=== PATIENT | female | born 1950 | race Caucasian/White ===

== ENCOUNTER → 2019-09-04 10:56 | Outpatient (CLI) | payer MEDICARE, OTHER, SELFPAY ==
[2019-09-04 12:33] LABS: Absolute Lymphocyte Count 1.54 X10^3/uL (0.83-4.51); Absolute Neutrophil Count 3.6 X10^3/uL (2.0-7.7); Basophil# 0.04 X10^3/uL; Basophil% 0.7 % (0-1); Eosinophil# 0.09 X10^3/uL; Eosinophils% 1.6 % (0-5); Hematocrit 40.1 % (37-47); Hemoglobin 12.7 g/dL (12.0-15.0); Lymphocyte # 1.54 X10^3/ul (4.0); Lymphocyte % 27.5 % (19-41); Mean Corp Hgb Conc 31.7 g/dL (32-36); Mean Corpuscular Hgb 29.5 pg (27.0-32.0); Mean Corpuscular Volume 93.3 fL (81-99); Mean Platelet Vol. 10.5 fl (6.2-12.0); Monocyte# 0.36 X10^3/uL; Monocyte% 6.4 % (0-10); NRBC Flagged by Analyzer 0 % (0-5); Neutrophil # 3.57 X10^3/uL (2.7-7.7); Neutrophil % 63.6 % (47-70); Platelet Count 246 K/mm3 (150-450); RBC Distribution Width CV 12.5 % (11.6-14.6); RBC Distribution Width SD 43.1 fl (35.1-43.9); White Blood Count 5.6 K/mm3 (4.4-11.0)
[2019-09-04 12:59] LABS: Iron 90 ug/dL (50-170); Iron Binding Capacity,Total 351 ug/dL (250-450); PERCENT IRON SATURATION 25.6 % (15.0-55.0)
== END ==
PROVIDERS: Referring Provider Dermatology; Visit Provider Dermatology
DX: I87.2 Venous insufficiency (chronic) (peripheral) (principal); I83.92 Asymptomatic varicose veins of left lower extremity; L82.0 Inflamed seborrheic keratosis; L72.8 Other follicular cysts of the skin and subcutaneous tissue; L21.8 Other seborrheic dermatitis; L82.1 Other seborrheic keratosis; L60.3 Nail dystrophy
CPT/HCPCS: 36415; 83540; 83550; 85025

== ENCOUNTER → 2019-11-06 16:36 | Outpatient (CLI) | payer MEDICARE, OTHER, SELFPAY ==
[2019-11-06 17:07] LABS: Absolute Lymphocyte Count 2.02 X10^3/uL (0.83-4.51); Absolute Neutrophil Count 4.4 X10^3/uL (2.0-7.7); Basophil# 0.04 X10^3/uL; Basophil% 0.6 % (0-1); Eosinophils% 1.4 % (0-5); Hemoglobin 13.2 g/dL (12.0-15.0); Lymphocyte # 2.02 X10^3/ul (4.0); Lymphocyte % 28.5 % (19-41); Mean Corp Hgb Conc 32.2 g/dL (32-36); Mean Corpuscular Hgb 29.7 pg (27.0-32.0); Mean Corpuscular Volume 92.3 fL (81-99); Mean Platelet Vol. 10.5 fl (6.2-12.0); Monocyte# 0.48 X10^3/uL; Monocyte% 6.8 % (0-10); NRBC Flagged by Analyzer 0 % (0-5); Neutrophil # 4.41 X10^3/uL (2.7-7.7); Neutrophil % 62.3 % (47-70); Platelet Count 275 K/mm3 (150-450); RBC Distribution Width CV 12.6 % (11.6-14.6); RBC Distribution Width SD 42.6 fl (35.1-43.9); Red Blood Count 4.44 M/mm3 (4.2-5.4); White Blood Count 7.1 K/mm3 (4.4-11.0)
[2019-11-06 18:02] LABS: ALB/GLOB Ratio 1.2 RATIO (0.9-2.4); AST(SGOT) 24 U/L (15-37); Alanine Aminotransfer ALT/SGPT 34 U/L (13-56); Albumin, Serum 3.8 g/dL (3.2-5.0); Alkaline Phosphatase 84 U/L (45-117); Anion Gap 4 (5-15); BUN 12 mg/dL (7-18); BUN/Creat Ratio 15.4 RATIO (10-20); Calcium,Total 9.3 mg/dL (8.5-10.1); Chloride 109 mmol/L (98-107); Creatinine, Serum 0.78 mg/dL (0.55-1.02); EST Glomerular Filtration Rate 78 mL/min (>60); Est Glom Filt Rate - Afr Amer 94 mL/min (>60); Globulin 3.2 g/dL (2.2-4.2); Glucose 94 mg/dL (74-106); Potassium 4.1 mmol/L (3.5-5.1); Sodium Level 140 mmol/L (136-145); Thyroid Stim Hormone (TSH) 0.24 uIU/mL (0.358-3.74)
[2019-11-07 09:20] LABS: Hepatitis C Antibody Non-Reactive (Nonreactive); Vitamin D,25 Hydroxy 41.7 ng/mL (29.95-100.01)
== END ==
PROVIDERS: Visit Provider Family Medicine Geriatric Medicine
DX: E55.9 Vitamin D deficiency, unspecified (principal); R53.83 Other fatigue; Z13.89 Encounter for screening for other disorder
CPT/HCPCS: 36415; 80053; 82306; 84443; 85025; 86803

== ENCOUNTER → 2022-11-03 | Outpatient (CLI) | payer MEDICARE, OTHER, SELFPAY ==
--- NOTE | 2022-11-03 13:13 | CT_ITS ---
STUDY: CT ABDOMEN AND PELVIS WITH CONTRAST REASON FOR EXAM: Female, 72 years old. LLQ pain, chronic constipation -- oral and iv RADIATION DOSAGE (If Supplied By Facility): CTDIvol = ( 11.07 ) mGy, DLP = ( 426.11 ) mGycm TECHNIQUE: Transaxial images were obtained from the dome of the diaphragm to the symphysis pubis with oral contrast. IV 100mL Isovue-300 was administered. Sagittal and coronal images were reconstructed. Individualized dose optimization techniques were used for this CT. COMPARISON: None. FINDINGS: The visualized lung bases are unremarkable. The visualized portions of the heart are within normal limits. Normal liver. Normal gallbladder and extrahepatic biliary system. Normal spleen. Normal pancreas. Normal bilateral adrenal glands. Normal right kidney. Normal left kidney. Normal visualized stomach. Normal small intestine. A large amount of fecal material is seen throughout the colon. The appendix is visualized and appears normal. There is scattered atherosclerotic calcification of the abdominal aorta, without a demonstrated aneurysm. Normal inferior vena cava. Normal retroperitoneum. Normal urinary bladder. There is absence of the uterus consistent with a prior hysterectomy. Normal abdominal wall. Normal osseous structures. CT/Abdomen/Pelvis WITH Contrast IMPRESSION: Large amount of fecal material is seen throughout the colon. Electronically Signed: Allen Appiah MD at 16:32 EST ,
[2022-11-03 13:45] LABS: CREATININE FINGERSTICK < 0.9 mg/dL (0.55-1.02); EGFR FINGERSTICK > 60.0000 mL/min (>60)
== END | disposition home or self-care (01) ==
LOC: CT 13:12
PROVIDERS: PCP Student in an Organized Health Care Education/Training Program; Referring Provider Nurse Practitioner Adult Health; Visit Provider Nurse Practitioner Adult Health
DX: R10.32 Left lower quadrant pain (principal)
CPT/HCPCS: 74177; Q9967

== ENCOUNTER 2022-12-21 07:35 | Day surgery (SDC) | payer MEDICARE, OTHER, SELFPAY ==
[2022-12-21] VITALS (7 sets, daily range): BP systolic 108–137; BP diastolic 64–75; PULSE 54–67; RESP 16; TEMP 36.6–36.8; O2SAT 96–100; BMI 24.2
--- NOTE | 2022-12-21 | ESO_PTH ---
PATIENT: RAMON HORTON LOC: EN U#:[id number] AGE/SX: 72/F ROOM: RE12/21/[address]: Dr. Jonathan Garza DO : 1950 BED: DIS: 12/21/2022 SPEC #: [id number] RECD: 12/21/22 11:20 STATUS: JOSE RAUL IBARRA #: [id number] LILIA: 12/21/22 00:[address]: Jonathan Garza DEPT: SURGICAL PATHOLOGY RECD BY: Imtiaz Guo ENTERED: 12/21/22 11:21 SP TYPE: CUBA MEYER DR: Dr. 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 Chronic inflammation. Negative for dysplasia. See comment. ZEN:jennifer 12/22/2022 COMMENT Alcian blue/PAS stain with matched control is used in the evaluation of the specimen. Immunohistochemistry ([id number]) for P53 and Ki-67 will be performed and results will be reported separately. MICROSCOPIC DESCRIPTION Slides are reviewed. GROSS DESCRIPTION Received in fixative is one container labeled with the patient's name and designated distal esophagus. The specimen consists of multiple irregular fragments of light kruger soft tissue that in aggregate measure 0.8 x 0.5 x 0.1 cm. The specimen is totally submitted in one cassette. / ZEN:jennifer 12/21/2022 TC:5 CPT: 49418, 85069
--- NOTE | 2022-12-21 | IMM_PTH ---
PATIENT: RAMON HORTON LOC: EN U#:[id number] AGE/SX: 72/F ROOM: RE12/21/[address]: Dr. Jonathan Garza DO : 1950 BED: DIS: 12/21/2022 SPEC #: [id number] RECD: 12/22/22 13:48 STATUS: JOSE RAUL REQ #: [id number] LILIA: 12/21/22 00:[address]: Jonathan Garza DEPT: IMMUNOHISTOCHEMISTRY RECD BY: Meg Cutler ENTERED: 12/22/22 13:49 SP TYPE: IMMUNO OTHR DR: Dr. 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 Localization is made via biotin free immunoperoxidase method. Appropriate controls are performed and reacted as expected. Results on target cell population are indicated in the following table: RESULTS: ANTIBODY / CLONE RESULT P53 (DO-7) negative Ki-67 (30-9) positive, low These tests were developed and their performance characteristics determined by [facility]. They may not have been cleared or approved by the U.S. Food and Drug Administration. The FDA has determined that such clearance or approval is not necessary. The above immunohistochemical/dualISH markers are ordered and reviewed by the Pathologist. INTERPRETATION: Distal esophagus, biopsy: Negative for dysplasia. ZEN:jennifer 12/23/2022
[2022-12-21] MEDS: Lactated Ringers 1,000 ML 15 ML IV (08:06)
--- NOTE | 2022-12-21 08:06 | HP.PCM_ITS ---
History and Physical Date of Admission: 12/21/22 72 F who presents to the office today to establish with a different GI practice for chronic constipation. She has a hx of GERD, multiple esophageal strictures requiring dilation, Guerrero's esophagus, lifelong constipation, IBS-C. About 6 mos ago she has developed LLQ pain, feels very deep, she describes as feeling like it's at the rectosigmoid colon. Worse when more constipated. She had sigmoid resection in 2020 for redundant colon to try to help colonoscopy, however no improvement in constipation. She had rectopexy at the same time--that has helped the fecal incontinence. No heartburn or acid reflux. No dysphagia. She is cutting back on pantoprazole due to concern about it contributing to constipation (no improvement in constipation). Stools are hard, has to strain, has daily BM most days. Drinking alkaline water. Daily olive oil which has helped with the hard small pellet st ool At least once a day prune juice. Takes citrucel daily. She has kept food diaries, no consistent triggers. Does help to avoid gluten, for GI symptoms and fibromyalgia. Has tried in past: miralax, dulcolax (stuck in esophagus) 11/2020 EGD and colonoscopy by another prison teacher 02/13/21 colonoscopy in anticipation of colorectal surgery: tubular adenoma in cecum, tubular adenoma in descending colon 03/10/21 colorectal surgeon did robotic resection rectopexy and sigmoidectomy Sphincteroplasty for rectal prolapse 2007 ROS Const Constitutional: Positive for headache(s); No fatigue, fever(s), frequent falls or weight change ENT ENT: Positive for headache(s); No difficulty swallowing Cardio Cardiology: No leg pain with exertion Gastro GI: Positive for constipation and nausea/dyspepsia; No abdominal pain, bloating, change in bowel habits, diarrhea, heartburn, difficulty swallowing, Vomiting blood/hematemesis, Blood in stool or vomiting Musc Musculoskeletal: Positive for joint pain, back pain, muscle cramps, numbness, stiffness, tingling, Arthritis and leg pain at night; No abnormal gait, joint swelling, muscle weakness, sciatica or leg pain with exertion Skin Skin: Positive for dry skin; No lesions, itchy eyes or rash Neuro Neurology: Positive for headache(s), numbness and tingling; No abnormal gait, dizziness, frequent falls, tremor(s), Increased tone in limbs, paralysis or seizures Psych Psychiatric: No anxiety, No depression, No paranoia, No Behavioral Problems, No Compulsive Behavior, No hyperactivity, No inattentiveness, No obsessions/compulsions, No Temper Tantrums and No suicidal ideation Endo Endocrine: No fatigue or weight change Aller/Imm Allergy/Immunologic: No itchy eyes Mike/Lymp Hematologic/Lymphatic: No easy bleeding or easy bruising Exam Const General: cooperative, healthy appearing and comfortable Nutritional Appearance: average body habitus Orientation: alert, awake and oriented x3 HENMT Head: normal to inspection Eyes Sclera: sclerae normal Resp Effort & Inspection: normal respiratory effort GI Inspection: normal to inspection Palpation: soft, no hepatosplenomegaly, no masses and nontender General: bladder normal to palpation Bimanual Exam- Vagina & Uterus: bladder normal to palpation Skin General: no rashes or lesions noted Neuro Gait: normal gait Psych Mood: euthymic mood Quality Reporting Tobacco Screening ([facility]) Smoking Status: Former smoker Assessment and Plan Assessment and Plan (1) LLQ abdominal pain: ?Status:?Acute ?Plan: 72 yr old female with chronic constipation, newer LLQ pain, hx GERD/Guerrero's/esophageal strictures CT abd pel w/ oral and IV contrast to evaluate the LLQ pain and chronic constipation (2) Chronic constipation: ?Status:?Chronic ?Plan: add aloe vera or kiwi supplements to her current regimen (3) Barretts esophagus: ?Status:?Acute ?Plan: resume pantoprazole 40 mg qam update EGD, office f/u 2 wks later ? ? ? Orders: I have examined the patient and the H&P has been reviewed. There are no clinical changes since date of exam.
--- NOTE | 2022-12-21 09:12 | OP.EGD_ITS ---
Patient Name: Solange Mitchell Procedure Date: 12/21/2022 8:41 AM Date of : 1950 Age: 72 Procedure: Upper GI endoscopy Indications: Dysphagia Providers: Jonathan Garza DO Medicines: Monitored Anesthesia Care Patient Profile: This is a 72 year old female. Refer to note in patient chart for documentation of history and physical. Patient has symptoms of chronic dysphagia and dysphagia with both liquids and solids. Complications: No immediate complications. Procedure: Pre-Anesthesia Assessment: - Prior to the procedure, a History and Physical was performed, and patient medications and allergies were reviewed. The risks and benefits of the procedure and the sedation options and risks were discussed with the patient. All questions were answered and informed consent was obtained. Patient identification and proposed procedure were verified by the physician in the pre-procedure area. Mental Status Examination: normal. Respiratory Examination: clear to auscultation. CV Examination: normal. Prophylactic Antibiotics: The patient does not require prophylactic antibiotics. Prior Anticoagulants: The patient has taken no previous anticoagulant or antiplatelet agents. After reviewing the risks and benefits, the patient was deemed in satisfactory condition to undergo the procedure. The anesthesia plan was to use monitored anesthesia care (MAC). Immediately prior to administration of medications, the patient was re-assessed for adequacy to receive sedatives. The heart rate, respiratory rate, oxygen saturations, blood pressure, adequacy of pulmonary ventilation, and response to care were monitored throughout the procedure. The physical status of the patient was re-assessed after the procedure. After obtaining informed consent, the endoscope was passed under direct vision. Throughout the procedure, the patient's blood pressure, pulse, and oxygen saturations were monitored continuously. The Endoscope was introduced through the mouth, and advanced to the second part of duodenum. The upper GI endoscopy was accomplished without difficulty. The patient tolerated the procedure well. Scope In: 8:57:23 AM Scope Out: 9:03:15 AM Total Procedure Duration Time 0 hours 5 minutes 52 seconds Findings: One benign-appearing, intrinsic stenosis was found 20 to 21 cm from the incisors. This stenosis was mildly severe and. The stenosis was traversed. A guidewire was placed and the scope was withdrawn. Dilation was performed with a Savary dilator with no resistance at 60 Fr. The dilation site was examined and showed moderate improvement in luminal narrowing. Estimated blood loss was minimal. The Z-line was irregular and was found 38 cm from the incisors. Biopsies were taken with a cold forceps for histology. Verification of patient identification for the specimen was done. Estimated blood loss was minimal. No other significant abnormalities were identified in a careful examination of the stomach. The cardia and gastric fundus were normal on retroflexion. The first portion of the duodenum was normal. Impression: - Benign-appearing esophageal stenosis. Dilated. - Z-line irregular, 38 cm from the incisors. Biopsied. - Normal first portion of the duodenum. Recommendation: - Discharge patient to home. - Resume previous diet. - Continue present medications. Procedure Code(s): --- Professional --- 81277, Esophagogastroduodenoscopy, flexible, transoral; with insertion of guide wire followed by passage of dilator(s) through esophagus over guide wire 32346, 59,51, Esophagogastroduodenoscopy, flexible, transoral; with biopsy, single or multiple CPT copyright 2017 [employer]. All rights reserved. The codes documented in this report are preliminary and upon loft rigger review may be revised to meet current compliance requirements. Jonathan Garza DO 12/21/2022 9:12:34 AM This report has been signed electronically. Number of Addenda: 0 Note Initiated On: 12/21/2022 8:41 AM
--- NOTE | 2022-12-21 09:12 | OP.CCLET_ITS ---
12/21/2022 Emeka Gutierrez Do Re : Upper GI endoscopy procedure for Solange Mitchell Dear Matt This procedure was performed on Wednesday, December 21, 2022. My impressions and recommendations are as follows: Impressions : - Benign-appearing esophageal stenosis. Dilated. - Z-line irregular, 38 cm from the incisors. Biopsied. - Normal first portion of the duodenum. Recommendations : - Discharge patient to home. - Resume previous diet. - Continue present medications. My findings are described in the full procedure note, which is enclosed. If I can be of further assistance, please feel free to contact me at . Sincerely, Jonathan Garza DO 12/21/2022 9:12:34 AM This report has been signed electronically.
== END 2022-12-21 10:06 | disposition home or self-care (01) ==
LOC: EN 07:37 → AC 07:39
PROVIDERS: PCP Student in an Organized Health Care Education/Training Program; Referring Provider Student in an Organized Health Care Education/Training Program; Visit Provider Internal Medicine Gastroenterology
PROC: 0DJ08ZZ Inspection of Upper Intestinal Tract, Via Natural or Artificial Opening Endoscopic (ICD-10-PCS; CPT 43235; principal; 2022-12-21 08:40)
DX: K22.70 Barrett's esophagus without dysplasia (principal); K22.2 Esophageal obstruction; J45.909 Unspecified asthma, uncomplicated; K21.9 Gastro-esophageal reflux disease without esophagitis; E03.9 Hypothyroidism, unspecified; Z87.891 Personal history of nicotine dependence; Z79.899 Other long term (current) drug therapy
CPT/HCPCS: 43239; 43248; 88305; 88313; 88341; 88342; J7120; C1769; J2405

== ENCOUNTER 2025-05-17 09:15 | Day surgery (SDC) | payer MEDICARE, OTHER, SELFPAY ==
--- NOTE | 2025-05-16 15:37 | PAT.ANESEVAL ---
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 When Was Last Pacemaker Check QUESTION #4 FULL TEXT: You/Your Family Experience fever (hyperthermia) with Anesthesia Last Oral Intake Last Oral intake: Last Oral Intake NPO since Meds taken in AM with sips of water? 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 Female Yes 05/14/25 14:31 HX of Motion Sickness No 05/14/25 14:31 HX of N/V After Surgery No 05/14/25 14:31 Non-Smoker Yes 05/14/25 14:31 Duration of Surgery greater No 05/14/25 14:31 than 60 minutes Number of Risk Factors 2 05/14/25 14:31 PONV Score Moderate Risk 05/14/25 14:31 Height & Weight Height & Weight: Anesthesia: Height & Weight Height 5 ft 4 in 08/28/24 10:54 Respiratory Assessment Respiratory Assessment - laborer cheesemaking: Respiratory Tract Infection Hx - laborer cheesemaking Hx Respiratory Tract Infection No 05/14/25 14:31 STOP Sleep Apnea STOP Sleep Apnea - laborer cheesemaking: STOP Sleep Apnea - laborer cheesemaking Hx Hypertension No 05/14/25 14:31 Hx Sleep Apnea No 05/14/25 14:31 CPAP BIPAP Do you snore loudly (louder No 05/14/25 14:31 than talking or can be heard Do you often feel tired/ No 05/14/25 14:31 fatigued/ sleepy during daytime? Has anyone observed you stop No 05/14/25 14:31 breathing during sleep? STOP Results Negative 05/14/25 14:31 QUESTION #5 FULL TEXT : Do you snore loudly (louder than talking or can be heard through closed doors)? 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 Specify any problems Hx of Preganancy in last 3 N/A 05/14/25 14:31 Months Nurse Filling Out Transfusion NBUCHER 05/14/25 14:31 & Questions: Date: 05/14/25 05/14/25 14:31 Time: 14:32 05/14/25 14:31 Patient unable to answer at this time (ie. confused, unrespo /Reproduction History /Reproductive History - laborer cheesemaking: /Reproductive Hx- laborer cheesemaking Hx Now No 05/14/25 14:31 Gestational Age (in weeks): EDC: Hx Hx Para Hx Section SAB No 05/14/25 14:31 PFSH Medical History (Updated 05/14/25 @ 14:40 by Jasmin Fish) Rheumatoid arthritis Frequent headaches Difficulty swallowing Cataract Wears glasses Cancer Alcohol use Thyroid disease Arthritis Migraine headache Back pain Injury of head and neck Dietary restriction History of IBS Gastric reflux Former smoker Chronic cough History of echocardiogram Cardiology follow-up encounter Seasonal allergies Rectal incontinence Palpitations Osteoporosis Neuropathy of both feet IBS (irritable bowel syndrome) History of mitral valve prolapse History of esophageal stricture History of aortic regurgitation Fibromyalgia Barretts esophagus GERD (gastroesophageal reflux disease) Asthma Acute insomnia Vitamin D deficiency IFG (impaired fasting glucose) Hypothyroidism Hyperlipidemia Home Medications Medication Instructions Recorded Last Taken Type albuterol sulfate 90 mcg/actuation 2 puff inhalation Q6H PRN ASTHMA 08/05/22 Unknown History aerosol inhaler atenolol 25 mg tablet 25 mg PO DAILY PRN Anxiety 08/05/22 Unknown History levothyroxine 75 mcg capsule 75 mcg PO SUTUWETHFRSA 08/05/22 Unknown History pantoprazole 40 mg tablet,delayed 40 mg PO DAILY 08/05/22 Unknown History release multivitamin 1 tab PO DAILY 12/15/22 Unknown History fluticasone propionate 50 1 spray intranasal BID 08/28/24 Unknown History mcg/actuation nasal spray,suspension ketoconazole 2 % topical cream 1 applic topical QDAY PRN rash 08/28/24 Unknown History levocetirizine 5 mg tablet 5 mg PO DAILY PRN allergy symptoms 08/28/24 Unknown History trazodone 50 mg tablet 25 mg PO QHS PRN sleep 08/28/24 Unknown History acyclovir 800 mg tablet 800 mg PO TID PRN PRN HERPES 05/14/25 Unknown History betamethasone, augmented 0.05 % applic topical PRN PRN rash 05/14/25 Unknown History topical cream magnesium citrate 34 mg chewable 16 mg PO DAILY 05/14/25 Unknown History tablet mecobalamin (vitamin B12) 500 mcg 500 mcg PO DAILY 05/14/25 Unknown History chewable tablet Allergy/AdvReac Type Severity Reaction Status Date / Time amoxicillin (From Augmentin) Allergy Intermediate Nausea Verified 05/14/25 14:26 azelastine (From Astelin) Allergy Intermediate Other Verified 05/14/25 14:26 ciprofloxacin Allergy Intermediate Nausea Verified 05/14/25 14:26 clavulanic acid (From Allergy Intermediate Nausea Verified 05/14/25 14:26 Augmentin) procaine Allergy Intermediate Other Verified 05/14/25 14:26 sorbitol Allergy Intermediate Diarrhea Verified 05/14/25 14:26 sulfamethoxazole (From Allergy Intermediate Nausea Verified 05/14/25 14:26 Septra) trimethoprim (From Septra) Allergy Intermediate Nausea Verified 05/14/25 14:26 Family History Mother Cancer Heart disease Thyroid disorder Father Heart disease Thyroid disorder Daughter Thyroid disorder Surgical History (Updated 05/14/25 @ 14:40 by Jasmin Fish) History of colonoscopy History of esophagogastroduodenoscopy (EGD) History of rectopexy Hx of surgical procedure History of carpal tunnel release H/O section H/O: hysterectomy Social History current occupational status: employed 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 Normal sinus rhythm. Early R wave transition. Echo (EF%) pertinent findings: 2016. Trivial MR. Consult pertinent findings: August 23, 2023. 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 1. Mitral valve prolapse–stable-last echo in 2016 showed trivial MR. No signs and symptoms of worsening valve function since then. 2. Palpitations-stable–no palpitations over the last 6 months. Event monitor from December 2021 did not show any arrhythmias and had less than 1% ectopic burden. She has increased her exercise. And she is continuing to avoid stimulants. Additional pertinent findings: December 2021. Event monitor did not show any arrhythmias and less than 1% ectopic burden. Recommendation Anesthesia Recommendation Anesthesia recommendation: OPTIMIZED for anesthesia
[2025-05-17] VITALS (8 sets, daily range): BP systolic 96–135; BP diastolic 60–78; PULSE 48–61; RESP 14–16; TEMP 36.1–36.6; O2SAT 94–99; BMI 24.2
[2025-05-17] MEDS: Lactated Ringers 1,000 ML 15 ML IV (09:58)
--- NOTE | 2025-05-17 10:13 | PCM.PRE.AN2 ---
ASA Classification* ASA Classification ASA Classification: 2 Assessment & Plan Anesthesia* Anesthesia Assessment Anesthesia Assessment: Discussed sedation and/or anesthesia options, risks, benefits, and alternatives with patient/parents/legal guardian/POA. Questions invited. The patient/parents/legal guardian/POA seems to understand and agrees to proceed with anesthesia plan. Reviewed the physical assessment, medical history, allergy history and patient home medications list prior to surgery/procedure/anesthetic and documented any changes. Performed airway and anesthesia risk assessments. Anesthesia Type Anesthesia Type: General and MAC History Source History Obtained from:: Patient and Chart Anesthesia Focused Assessment* Temperature: 97 F Pulse Rate: 61 Blood Pressure: 135/65 Respiratory Rate: 16 Pulse Ox: 97 Airway Assessment Mouth opens: >3 cm Mallampati Score: II Teeth Condition: Intact Neck Range of motion (ROM): Full ROM Labs Anesthesia Preop lab: CBC WBC 7.1 K/mm3 (4.4-11.0) 11/06/19 16:38 11/06/19 RBC 4.44 M/mm3 (4.2-5.4) 11/06/19 16:38 11/06/19 Hgb 13.2 g/dL (12.0-15.0) 11/06/19 16:38 11/06/19 Hct 41.0 % (37-47) 11/06/19 16:38 11/06/19 Plt Count 275 K/mm3 (150-450) 11/06/19 16:38 11/06/19 CHEMISTRY Potassium 4.1 mmol/L (3.5-5.1) 11/06/19 16:38 11/06/19 Sodium 140 mmol/L (136-145) 11/06/19 16:38 11/06/19 BUN 12 mg/dL (7-18) 11/06/19 16:38 11/06/19 Creatinine 0.78 mg/dL (0.55-1.02) 11/06/19 16:38 11/06/19 Glucose 94 mg/dL (74-106) 11/06/19 16:38 11/06/19 TSH 0.24 uIU/mL (0.358-3.74) L 11/06/19 16:38 11/06/19 COAG Pre-Assessment Diagnosis/Proposed Procedure Planned Operative Procedure(s): EGD WITH POSSIBLE DILATION Anesthesia History Anesthesia History - car unloader helper: Anesthesia History - car unloader helper Hx Hospitalization No 05/14/25 14:31 Any Problems With Anesthesia No 05/14/25 14:31 Cholinesterase deficiency No 05/14/25 14:31 You/Your Family Experience No 05/14/25 14:31 fever (hyperthermia) with Relationship Recent Exposure to Contagious No 05/17/25 09:51 Disease Does patient have nerve No 05/14/25 14:31 stimulator Patient instructed to have device shut off --Does patient have Pacemaker No 05/17/25 09:51 or ICD? When Was Last Pacemaker Check QUESTION #4 FULL TEXT: You/Your Family Experience fever (hyperthermia) with Anesthesia Last Oral Intake Last Oral intake: Last Oral Intake NPO since 06:00 05/17/25 09:51 Meds taken in AM with sips of Yes 05/17/25 09:51 water? Meds patient instructed to see mar 05/17/25 09:51 take am of surgery PONV PONV - car unloader helper: PONV - car unloader helper Female Yes 05/14/25 14:31 HX of Motion Sickness No 05/14/25 14:31 HX of N/V After Surgery No 05/14/25 14:31 Non-Smoker Yes 05/14/25 14:31 Duration of Surgery greater No 05/14/25 14:31 than 60 minutes Number of Risk Factors 2 05/14/25 14:31 PONV Score Moderate Risk 05/14/25 14:31 Height & Weight Height & Weight: Anesthesia: Height & Weight Height 5 ft 4 in 05/17/25 09:51 Weight: 63.957 kg 05/17/25 09:51 Body Mass Index (BMI) 24.2 05/17/25 09:51 Respiratory Assessment Respiratory Assessment - car unloader helper: Respiratory Tract Infection Hx - car unloader helper Hx Respiratory Tract Infection No 05/14/25 14:31 STOP Sleep Apnea STOP Sleep Apnea - car unloader helper: STOP Sleep Apnea - car unloader helper Hx Hypertension No 05/14/25 14:31 Hx Sleep Apnea No 05/14/25 14:31 CPAP BIPAP Do you snore loudly (louder No 05/14/25 14:31 than talking or can be heard Do you often feel tired/ No 05/14/25 14:31 fatigued/ sleepy during daytime? Has anyone observed you stop No 05/14/25 14:31 breathing during sleep? STOP Results Negative 05/14/25 14:31 QUESTION #5 FULL TEXT : Do you snore loudly (louder than talking or can be heard through closed doors)? Tobacco Use History Tobacco Use History - car unloader helper: Tobacco Use History - car unloader helper Tobacco Use Smoking Status Former smoker 05/14/25 14:31 Hx Tobacco Use No 05/14/25 14:31 Years Smoking Packs Smoked per Day Smoking Cessation Date was No - quit smoking greater 05/14/25 14:31 within the last 15 years than 15 years ago Hx Smoking Cessation Date 10/25/86 05/14/25 14:31 Hx Smoking Cessation Counseling Hematologic Medial History Hematologic Hx - car unloader helper: Hematologic Medical Hx - regulatory associate Hx of Blood Transfusion No 05/14/25 14:31 Hx of Transfusion in last 3 No 05/14/25 14:31 Months Date of Last Transfusion (if within last 3 months) Ever experience any problems No 05/14/25 14:31 with transfusion(s)? Specify any problems Hx of Preganancy in last 3 N/A 05/14/25 14:31 Months Nurse Filling Out Transfusion NBUCHER 05/14/25 14:31 & Questions: Date: 05/14/25 05/14/25 14:31 Time: 14:32 05/14/25 14:31 Patient unable to answer at this time (ie. confused, unrespo /Reproduction History /Reproductive History - car unloader helper: /Reproductive Hx- car unloader helper Hx Now No 05/14/25 14:31 Gestational Age (in weeks): EDC: Hx Hx Para Hx Section SAB No 05/14/25 14:31 Active Medications Active Medications: Current Medications Generic Name Dose Route Start Last Admin Trade Name Freq PRN Reason Stop Dose Admin Lactated Ringer's 1,000 mls @ 15 mls/hr 05/17/25 09:45 05/17/25 09:58 IV 15 mls/hr .Q48H NATALIE Administration PFSH Medical History Rheumatoid arthritis Frequent headaches Difficulty swallowing Cataract Wears glasses Cancer Alcohol use Thyroid disease Arthritis Migraine headache Back pain Injury of head and neck Dietary restriction History of IBS Gastric reflux Former smoker Chronic cough History of echocardiogram Cardiology follow-up encounter Seasonal allergies Rectal incontinence Palpitations Osteoporosis Neuropathy of both feet IBS (irritable bowel syndrome) History of mitral valve prolapse History of esophageal stricture History of aortic regurgitation Fibromyalgia Barretts esophagus GERD (gastroesophageal reflux disease) Asthma Acute insomnia Vitamin D deficiency IFG (impaired fasting glucose) Hypothyroidism Hyperlipidemia Home Medications Medication Instructions Recorded Last Taken Type albuterol sulfate 90 mcg/actuation 2 puff inhalation Q6H PRN ASTHMA 08/05/22 Unknown History aerosol inhaler atenolol 25 mg tablet 25 mg PO DAILY PRN Anxiety 08/05/22 Unknown History levothyroxine 75 mcg capsule 75 mcg PO SUTUWETHFRSA 08/05/22 05/17/25 History pantoprazole 40 mg tablet,delayed 40 mg PO DAILY 08/05/22 05/16/25 History release multivitamin 1 tab PO DAILY 12/15/22 Unknown History fluticasone propionate 50 1 spray intranasal BID 08/28/24 Unknown History mcg/actuation nasal spray,suspension ketoconazole 2 % topical cream 1 applic topical QDAY PRN rash 08/28/24 Unknown History levocetirizine 5 mg tablet 5 mg PO DAILY PRN allergy symptoms 08/28/24 Unknown History trazodone 50 mg tablet 25 mg PO QHS PRN sleep 08/28/24 Unknown History acyclovir 800 mg tablet 800 mg PO TID PRN PRN HERPES 05/14/25 Unknown History betamethasone, augmented 0.05 % applic topical PRN PRN rash 05/14/25 Unknown History topical cream magnesium citrate 34 mg chewable 16 mg PO DAILY 05/14/25 Unknown History tablet mecobalamin (vitamin B12) 500 mcg 500 mcg PO DAILY 05/14/25 Unknown History chewable tablet Allergy/AdvReac Type Severity Reaction Status Date / Time amoxicillin (From Augmentin) Allergy Intermediate Nausea Verified 05/17/25 09:49 azelastine (From Astelin) Allergy Intermediate Other Verified 05/17/25 09:49 ciprofloxacin Allergy Intermediate Nausea Verified 05/17/25 09:49 clavulanic acid (From Allergy Intermediate Nausea Verified 05/17/25 09:49 Augmentin) procaine Allergy Intermediate Other Verified 05/17/25 09:49 sorbitol Allergy Intermediate Diarrhea Verified 05/17/25 09:49 sulfamethoxazole (From Allergy Intermediate Nausea Verified 05/17/25 09:49 Septra) trimethoprim (From Septra) Allergy Intermediate Nausea Verified 05/17/25 09:49 Family History Mother Cancer Heart disease Thyroid disorder Father Heart disease Thyroid disorder Daughter Thyroid disorder Surgical History History of colonoscopy History of esophagogastroduodenoscopy (EGD) History of rectopexy Hx of surgical procedure History of carpal tunnel release H/O section H/O: hysterectomy Social History current occupational status: employed 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
--- NOTE | 2025-05-17 10:15 | EGD_PTH ---
PATIENT: RAMON HORTON LOC: EN U#:[id number] AGE/SX: 75/F ROOM: RE05/17/[address]: Dr. Jonathan Garza DO : 1950 BED: DIS: 05/17/2025 SPEC #: [id number] RECD: 05/17/25 17:53 STATUS: JOSE RAUL REElzbieta #: [id number] LILIA: 05/17/25 10:[address]: Jonathan Garza DEPT: SURGICAL PATHOLOGY RECD BY: Kev Renteria ENTERED: 05/18/25 09:52 SP TYPE: EGD BIOPSY BETSY DR: Dr. Emeka Gutierrez DO Tissues: A - Esophagus, NOS Procedures: Surgery Specimen Level IV HEADER OPERATION: EGD, biopsy, dilation PRE-OP DIAGNOSIS: Guerrero's esophagus, chronic constipation TISSUE SUBMITTED: A- Distal esophagus biopsy MICROSCOPIC DIAGNOSIS A. Distal esophagus, biopsy: - Guerrero mucosa negative for dysplasia. MICROSCOPIC DESCRIPTION Slides are reviewed. GROSS DESCRIPTION A. Received in fixative is one container labeled with the patient's name and designated "Distal esophagus biopsy." The specimen consists of three irregular fragments of light kruger soft tissue that in aggregate measure 0.4 to 0.5 cm. The specimen is totally submitted in one cassette. ID 05/[id number] CPT:63897
--- NOTE | 2025-05-17 10:28 | PCM.HP.STD ---
HPI - General General Date of Admission: 05/17/25 Date of Service: 05/17/25 Chief Complaint: Guerrero's esophagus HPI Narrative RAMON HORTON, is a 75 F who presents Chief Complaint: [facility]ret[facility] established in 2021 for hx of Guerrero, esophageal strictures and IBS-C. 11/2020 EGD and colonoscopy by another installer apprentice 02/13/21 colonoscopy in anticipation of colorectal surgery: tubular adenoma in cecum, tubular adenoma in descending colon 03/10/21 colorectal surgeon did robotic resection rectopexy and sigmoidectomy Sphincteroplasty for rectal prolapse 2007 EGD 12.21.22 - Benign-appearing esophageal stenosis. Dilated. - Z-line irregular, 38 cm from the incisors. Biopsied. - Normal first portion of the duodenum. OV 03.14.25 Pt here today for questions regarding her Pantoprazole. Pt has never had issues with heartburn. [facility] Medical History Rheumatoid arthritis Frequent headaches Difficulty swallowing Cataract Wears glasses Cancer Alcohol use Thyroid disease Arthritis Migraine headache Back pain Injury of head and neck Dietary restriction History of IBS Gastric reflux Former smoker Chronic cough History of echocardiogram Cardiology follow-up encounter Seasonal allergies Rectal incontinence Palpitations Osteoporosis Neuropathy of both feet IBS (irritable bowel syndrome) History of mitral valve prolapse History of esophageal stricture History of aortic regurgitation Fibromyalgia Barretts esophagus GERD (gastroesophageal reflux disease) Asthma Acute insomnia Vitamin D deficiency IFG (impaired fasting glucose) Hypothyroidism Hyperlipidemia Home Medications Medication Instructions Recorded Last Taken Type albuterol sulfate 90 mcg/actuation 2 puff inhalation Q6H PRN ASTHMA 08/05/22 Unknown History aerosol inhaler atenolol 25 mg tablet 25 mg PO DAILY PRN Anxiety 08/05/22 Unknown History levothyroxine 75 mcg capsule 75 mcg PO SUTUWETHFRSA 08/05/22 05/17/25 History pantoprazole 40 mg tablet,delayed 40 mg PO DAILY 08/05/22 05/16/25 History release multivitamin 1 tab PO DAILY 12/15/22 Unknown History fluticasone propionate 50 1 spray intranasal BID 08/28/24 Unknown History mcg/actuation nasal spray,suspension ketoconazole 2 % topical cream 1 applic topical QDAY PRN rash 08/28/24 Unknown History levocetirizine 5 mg tablet 5 mg PO DAILY PRN allergy symptoms 08/28/24 Unknown History trazodone 50 mg tablet 25 mg PO QHS PRN sleep 08/28/24 Unknown History acyclovir 800 mg tablet 800 mg PO TID PRN PRN HERPES 05/14/25 Unknown History betamethasone, augmented 0.05 % applic topical PRN PRN rash 05/14/25 Unknown History topical cream magnesium citrate 34 mg chewable 16 mg PO DAILY 05/14/25 Unknown History tablet mecobalamin (vitamin B12) 500 mcg 500 mcg PO DAILY 05/14/25 Unknown History chewable tablet Allergy/AdvReac Type Severity Reaction Status Date / Time amoxicillin (From Augmentin) Allergy Intermediate Nausea Verified 05/17/25 09:49 azelastine (From Astelin) Allergy Intermediate Other Verified 05/17/25 09:49 ciprofloxacin Allergy Intermediate Nausea Verified 05/17/25 09:49 clavulanic acid (From Allergy Intermediate Nausea Verified 05/17/25 09:49 Augmentin) procaine Allergy Intermediate Other Verified 05/17/25 09:49 sorbitol Allergy Intermediate Diarrhea Verified 05/17/25 09:49 sulfamethoxazole (From Allergy Intermediate Nausea Verified 05/17/25 09:49 Septra) trimethoprim (From Septra) Allergy Intermediate Nausea Verified 05/17/25 09:49 Family History Mother Cancer Heart disease Thyroid disorder Father Heart disease Thyroid disorder Daughter Thyroid disorder Surgical History History of colonoscopy History of esophagogastroduodenoscopy (EGD) History of rectopexy Hx of surgical procedure History of carpal tunnel release H/O section H/O: hysterectomy Social History current occupational status: employed 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 Smoking Status: Former smoker alcohol intake: current alcohol intake frequency: a few times a month details: On avg 1-2 glasses of wine every other wk substance use type: does not use caffeine: Yes (1-2 cups half-caf coffee daily) do you feel safe at home: Yes ROS Constitutional Constitutional: Denies fatigue, fever(s), poor appetite, weight gain or weight loss Gastrointestinal Gastrointestinal: Denies belching, bloating, change in bowel habits, change in stool character, chewing difficulty, coffee ground emesis, constipation, cramping, diarrhea, dyspepsia, dysphagia, early satiety, excessive flatus, fecal incontinence, heartburn, hematemesis, hematochezia, hemorrhoids, loose stools, melena, nausea, odynophagia, rectal bleeding, tenesmus, vomiting or weight changes Vital Signs Vital Signs Vital Signs: 05/17/25 09:51 05/17/25 09:51 05/17/25 10:20 Temperature 97 F L 97 F L Temperature Source Temporal Pulse Rate 61 61 Respiratory Rate 16 16 Respiratory Pattern Normal Blood Pressure 135/65 H 135/65 H Blood Pressure Mean 88 Blood Pressure Source Monitor Blood Pressure Position Semi-Fowlers Blood Pressure Location Right Arm Pulse Ox 97 97 Oxygen Delivery Method Room Air Weight Weight: 141 lb Body Mass Index (BMI) 24.2 Physical Exam Const alert, oriented x3, no apparent distress and healthy appearing General Appearance: cooperative GI normal to inspection, nondistended, normoactive bowel sounds, soft to palpation, non-tender and non-distended Percussion: normal to percussion Rectal Exam: deferred Assessment & Plan Assessment/Plan (1) Barretts esophagus: (2) LLQ abdominal pain: PLAN: Assessment and Plan Assessment and Plan (1) Barretts esophagus: Status: Chronic Plan: This is a 75 yo female pt here today for f/u of Barretts esophagus and chronic constipation. Pt has not been seen in the office since 2022 as she has been doing well. She has concerns regarding exterminator use of PPIs. She is has concerns over the the effect it may have on her memory. I advised that she has Barretts esophagus and PPIs help prevent progression to dysplasia or cancer. Studies have been in conclusive regarding its association. Pt was advised that the recommendation is to continue with PPI but it is ultimatly up to her. She will undergo EGD to assess her Barretts esophagus. Her constipation is well controlled with adequate hydration, fiber and olive oil. -EGD -Recommend continuing PPI -f/u after scope (2) Chronic constipation: Status: Chronic
--- NOTE | 2025-05-17 10:50 | OP.EGD_ITS ---
Patient Name: Solange Mitchell Procedure Date: 05/17/2025 10:30 AM Date of : 1950 Age: 75 Procedure: Upper GI endoscopy Indications: Dysphagia, Follow-up of Guerrero's esophagus Providers: Jonathan Gazra DO Referring MD: Emeka Gutierrez Do Medicines: Monitored Anesthesia Care Patient Profile: This is a 75 year old female. Refer to note in patient chart for documentation of history and physical. Patient has symptoms of dysphagia with solids. Complications: No immediate complications. Procedure: Pre-Anesthesia Assessment: - Prior to the procedure, a History and Physical was performed, and patient medications and allergies were reviewed. The patient is competent. The risks and benefits of the procedure and the sedation options and risks were discussed with the patient. All questions were answered and informed consent was obtained. Patient identification and proposed procedure were verified by the physician in the pre-procedure area. Mental Status Examination: alert and oriented. Airway Examination: normal oropharyngeal airway and neck mobility. Respiratory Examination: clear to auscultation. CV Examination: normal. Prophylactic Antibiotics: The patient does not require prophylactic antibiotics. Prior Anticoagulants: The patient has taken no anticoagulant or antiplatelet agents except for NSAID medication. ASA Grade Assessment: II - A patient with mild systemic disease. After reviewing the risks and benefits, the patient was deemed in satisfactory condition to undergo the procedure. The anesthesia plan was to use monitored anesthesia care (MAC). Immediately prior to administration of medications, the patient was re-assessed for adequacy to receive sedatives. The heart rate, respiratory rate, oxygen saturations, blood pressure, adequacy of pulmonary ventilation, and response to care were monitored throughout the procedure. The physical status of the patient was re-assessed after the procedure. After obtaining informed consent, the endoscope was passed under direct vision. Throughout the procedure, the patient's blood pressure, pulse, and oxygen saturations were monitored continuously. The gastroscope was introduced through the mouth, and advanced to the second part of duodenum. The upper GI endoscopy was accomplished without difficulty. The patient tolerated the procedure well. Scope In: 10:40:46 AM Scope Out: 10:45:30 AM Total Procedure Duration Time 0 hours 4 minutes 44 seconds Findings: The Z-line was irregular and was found 39 cm from the incisors. Biopsies were taken with a cold forceps for histology. Verification of patient identification for the specimen was done. Estimated blood loss was minimal. One benign-appearing, intrinsic moderate stenosis was found 20 to 24 cm from the incisors. This stenosis measured 6 cm (in length). The stenosis was traversed. A guidewire was placed and the scope was withdrawn. Dilation was performed with a Savary dilator with no resistance at 57 Fr. The dilation site was examined and showed moderate improvement in luminal narrowing. No gross lesions were noted in the entire examined stomach. No gross lesions were noted in the entire examined duodenum. Impression: - Z-line irregular, 39 cm from the incisors. Biopsied. - Benign-appearing esophageal stenosis. Dilated. - No gross lesions in the entire stomach. - No gross lesions in the entire examined duodenum. Recommendation: - The patient will be observed post-procedure, until all discharge criteria are met. - Discharge patient to home. - Resume previous diet. - Continue present medications. - Await pathology results. Procedure Code(s): --- Professional --- 16609, Esophagogastroduodenoscopy, flexible, transoral; with insertion of guide wire followed by passage of dilator(s) through esophagus over guide wire 88408, 59,51, Esophagogastroduodenoscopy, flexible, transoral; with biopsy, single or multiple CPT copyright 2021 [employer]. All rights reserved. The codes documented in this report are preliminary and upon metal sprayer protective coating review may be revised to meet current compliance requirements. Jonathan Garza DO 05/17/2025 10:49:38 AM This report has been signed electronically. Number of Addenda: 0 Note Initiated On: 05/17/2025 10:30 AM
--- NOTE | 2025-05-17 10:50 | OP.CCLET_ITS ---
05/17/2025 Emeka Gutierrez Do Re : Upper GI endoscopy procedure for Solange Mitchell Dear Matt This procedure was performed on April. My impressions and recommendations are as follows: Impressions : - Z-line irregular, 39 cm from the incisors. Biopsied. - Benign-appearing esophageal stenosis. Dilated. - No gross lesions in the entire stomach. - No gross lesions in the entire examined duodenum. Recommendations : - The patient will be observed post-procedure, until all discharge criteria are met. - Discharge patient to home. - Resume previous diet. - Continue present medications. - Await pathology results. My findings are described in the full procedure note, which is enclosed. If I can be of further assistance, please feel free to contact me at . Sincerely, Jonathan Garza DO 05/17/2025 10:49:38 AM This report has been signed electronically.
--- NOTE | 2025-05-17 10:53 | PCM.POST.ANE ---
Anesthesia: Postop Eval I Current Vital Signs Temperature: 97.9 F Pulse Rate: 57 Blood Pressure: 105/60 Respiratory Rate: 14 Pulse Ox: 96 Oxygen Delivery Method: Room Air Assessment Airway patent: Yes Spontaneous unlabored respirations: Yes Mental status: Asleep nausea: No Vomiting: No Anesthesia Complication: No Fluid Hydration Crystalloid volume administer (ml): 300 Total IV fluid infused: 300 Progress Note Anesthesia document: Postop Eval 1 completed: Yes
--- NOTE | 2025-05-17 11:54 | PCM.POSTANE2 ---
Anesthesia Postop Eval I Sum Postop Eval Completion status Anesthesia document: Postop Eval 1 completed: Yes Anesthesia Postop Eval I Summary Anesthesia Postop Eval I Summary: Anesthesia Postop Eval I: Assessment Summary Airway patent Yes 05/17/25 10:54 [email or web address] Spontaneous unlabored Yes 05/17/25 10:54 [email or web address] respirations Mental status Asleep 05/17/25 10:54 [email or web address] nausea No 05/17/25 10:54 [email or web address] Vomiting No 05/17/25 10:54 [email or web address] Anesthesia Postop Eval I: Fluid Summary Crystalloid volume administer 300 05/17/25 10:54 [email or web address] (ml) Colloids volume administered ( ml) Blood Product volume administered (ml) Total IV fluid infused 300 05/17/25 10:54 [email or web address] Anesthesia Postop Eval I: Summary Notes Anesthesia Complication No 05/17/25 10:54 [email or web address] Anesthesia Complication Comment: Post-operative progress note Anesthesia: Postop Eval II Evaluation Mental status: Awake and Calm Pain Level: 1 nausea: No Vomiting: No Complications Anesthesia Complication: No
== END 2025-05-17 11:28 | disposition home or self-care (01) ==
LOC: EN 09:23 → AC 09:26
PROVIDERS: PCP Student in an Organized Health Care Education/Training Program; Referring Provider Student in an Organized Health Care Education/Training Program; Visit Provider Internal Medicine Gastroenterology
PROC: 0DJ08ZZ Inspection of Upper Intestinal Tract, Via Natural or Artificial Opening Endoscopic (ICD-10-PCS; CPT 43235; principal; 2025-05-17 10:10)
DX: K22.70 Barrett's esophagus without dysplasia (principal); K22.2 Esophageal obstruction; K59.09 Other constipation; Z87.891 Personal history of nicotine dependence
CPT/HCPCS: 43248; 43239; 88305; C1769; J2405

== ENCOUNTER → 2025-07-06 | Outpatient (CLI) | payer MEDICARE, OTHER, SELFPAY ==
--- NOTE | 2025-07-06 12:53 | CT_ITS ---
PROCEDURE: CTA HEAD AND NECK W/ CONTRAST 07/06/2025 REASON FOR EXAM: PULSATILE TINNITUS, RIGHT EAR HEADACHES TECHNIQUE: Procedure Code: [id number].HDNCK Modality: CT Procedure: CTA HEAD AND NECK W/ CONTRAST Multiplanar Sagittal and Coronal images were obtained. 3D post processing was performed CONTRAST: Isovue 370 VOLUME: 100 mL One or more dose reduction techniques were used (e.g., Automated exposure control, adjustment of the mA and/or kV according to patient size, use of iterative reconstruction technique). RADIATION DOSE SUMMARY: CTDlvol: 80 mGy DLP: 1357 mGycm COMPARISON: None. FINDINGS: CT BRAIN: Cerebrum: Slight loss of cerebral volume. Negative for mass the frontal, parietal, temporal and occipital lobes scratchnegative. White matter: Negative for periventricular white matter changes. Cerebellum: Negative. Negative for mass. Negative for acute infarction. CSF pathways and ventricles: Negative. Negative for ventricular dilatation or obstruction. Basal ganglia and thalami: Negative. No acute infarctions. Brainstem: Midbrain, denise and medulla scratchnegative. Calvarium: Negative. Negative for fractures. Orbital structures: Globes negative. Extraocular muscles negative. Paranasal sinuses: No air fluid levels. Remainder of the sinuses negative. Vascular structures: Mild calcifications of the intracranial structures. Other: : Negative for acute intracranial hemorrhage. Negative for acute infarction. Remainder of exam negative. CTA BRAIN: Dominant right vertebral artery. Basilar artery negative. Posterior cerebral arteries: Right posterior communicating artery hypoplastic but patent.. Left posterior communicating artery hypoplastic but patent.. Negative for stenosis of the posterior cerebral arteries. Posterior cerebral arteries and distal branches negative. Distal internal carotid arteries: Mild vascular calcifications of the distal internal carotid arteries. Negative for stenosis. Anterior cerebral arteries: Anterior communicating artery patent. Anterior cerebral arteries and branches negative. Middle cerebral arteries: Negative for stenosis of the middle cerebral arteries. Middle cerebral arteries and branches negative. Specifically the right carotid and jugular veins are normal with no evidence of high-riding jugular vein or anomalous bright internal carotid artery. Negative for intracranial aneurysm or significant stenosis. CTA neck: Cataract surgery. Intracranial contents negative. Oropharynx, hypopharynx and larynx negative. Soft tissue neck negative. Scattered cervical lymph nodes without focal mass. Imaged lungs and mediastinum negative. Aortic arch and branches patent. Right side: Origin of the right common carotid artery negative. Negative for vascular calcifications of the common carotid artery and/or internal carotid artery. Negative for hemodynamically significant stenosis of the right common carotid artery. Negative for hemodynamically significant stenosis of the right internal carotid artery. Left side: Origin of the left common carotid artery negative. Negative for vascular calcifications of the common carotid and/or internal carotid artery. Negative for hemodynamically significant stenosis of the right common carotid artery. Negative for hemodynamically significant stenosis of the left internal carotid artery. CT/CTA Head AND Neck W/ Contrast IMPRESSION: Negative CTA of the head and neck. Reading Location: [id number]
== END | disposition home or self-care (01) ==
LOC: CT 12:51
PROVIDERS: PCP Student in an Organized Health Care Education/Training Program; Referring Provider Otolaryngology; Visit Provider Otolaryngology
DX: H93.A1 Pulsatile tinnitus, right ear (principal); R51.9 Headache, unspecified
CPT/HCPCS: 70496; 70498; Q9967